=== PATIENT | female | born 1980 | race Caucasian/White ===

== ENCOUNTER 2023-10-08 06:12 | Day surgery (SDC) | payer SELFPAY ==
[2023-10-08] VITALS (10 sets, daily range): BP systolic 92–123; BP diastolic 58–76; PULSE 65–89; RESP 16; TEMP 36.6–36.9; O2SAT 94–100; BMI 31.6
[2023-10-08] MEDS: Lactated Ringers 1,000 ML 15 ML IV (06:30)
--- NOTE | 2023-10-08 07:27 | PCM.HP.BLA ---
History and Physical Date of Admission: 10/08/23 The patient is examined and there are no changes to the H&P dated 09/16/23. Pt with redundant atrophic skin of the abdomen following massive weight loss. Assessment & Plan Assessment/Plan (1) Localized adiposity of abdomen: (2) Solar elastosis: PLAN: Plan For abdominoplasty.
[2023-10-08] MEDS: Clindamycin 900 MG/50 ML BAG 75 MG IV (07:34)
[2023-10-08] MEDS: Gentamicin 80 MG/2 ML Vial (08:15)
[2023-10-08] MEDS: Bupivacaine 0.25% 30 ML Vial (12:38)
--- NOTE | 2023-10-08 12:57 | DCINST_ITS ---
Discharge Instructions Diet Discharge Diet: No restrictions Activity Additional Activity Instructions:: Keep back elevated (recliner position). Empty LACY's 2-3 times a day a record output in ml. Bring the LACY output sheet to your appointment. Maintain the Binder in the position as directed. Follow the instructions provided in the office. Follow Up Care Please Follow Up With: Sabrina Thurman MD When: next week as scheduled. Test Results: Test results from this visit will be discussed in further detail at your follow- up appointment, if applicable. Discharge Plan Admission Attending Provider: Sabrina Thurman Primary Care Provider: Anjelica Chapa Discharge Orders/Prescriptions Prescriptions: No Action clopidogrel [Plavix] 75 mg tablet 75 mg PO DAILY Hold Instructions: FOR SURGERY 10/08/23 losartan 50 mg tablet 50 mg PO DAILY pantoprazole [Protonix] 20 mg tablet,delayed release (DR/EC) 20 mg PO DAILY metoprolol succinate 50 mg tablet extended release 24 hr 25 mg PO BID atorvastatin 20 mg tablet 20 mg PO DAILY Lomaira 8 mg tablet 8 mg PO BID Hold Instructions: FOR SURGERY 10/08/23 Rx Instructions: must administer 30 minutes before meals/food aspirin 81 mg capsule 81 mg PO DAILY Hold Instructions: FOR SURGERY 10/08/23 clindamycin HCl 300 mg capsule 300 mg PO Q8H Qty: 20 0RF Referrals / Follow Up: Anjelica Chapa MD [Primary Care Provider] - Disposition Disposition (needs filled in before D/C Order can be placed): Home, Self Care
--- NOTE | 2023-10-08 13:03 | PCM.OPRPT ---
Problems Associated Problem List Diagnoses (1) Localized adiposity of abdomen: (2) Solar elastosis: Report of Operation Date of Procedure: 10/08/23 Pre-Operative Diagnosis: Localized adiposity, atrophic skin Post-Operative Diagnosis: Same Surgery/Procedure Performed:: Abdominoplasty including excision atrophic skin and rectus abdominis muscle plication Surgeon: Sabrina Thurman process validation engineer: ELLIOTT YOUNGBLOODpainter foreman Type of Anesthesia: General Drains: LACY x2 Estimated Blood Loss (mL): 50 cc Description of Procedure: The procedure of abdominoplasty been thoroughly reviewed with the patient including the expected pre-, intra-, postoperative course. The potential risk and complications of surgery have been reviewed which include but are not exclusive of bleeding, infection, pain, numbness, asymmetry, scar tissue, skin necrosis, the need for further surgery, DVT, and even . She is marked in the preop holding area prior to surgery. The patient was brought to the operating room and placed under general anesthesia in the supine position. Care is taken to pad all pressure points, apply a warming blanket, sequential compression stockings, and a Delacruz catheter. The abdomen is prepped and draped in the usual sterile fashion. We initially began with making the premarked incision. This is carried down through the subcutaneous tissue until the abdominal fascia is identified. Dissection then continued cephalad to the umbilicus. The umbilicus is circumscribed and an adequate adipose tissue cuff is left around the stalk. Dissection then continued cephalad to the xiphoid. The wound is irrigated with antibiotic solution and checked for hemostasis which is controlled with cautery. Following this, the edges of the rectus abdominis muscle are marked to delineate the diastases. Nurolon pop-off sutures are used along the length of the diastases to approximate the muscle edges in a [id number] fashion. Following this, a looped nylon suture is used to reinforce the closure. This is taken from the xiphoid to the umbilicus and then a second suture from the umbilicus to the pubic area. The patient is then placed in a semi-Fowlers position and the skin is demarcated to be removed. This is confirmed before the excess skin is incised and removed. Hemostasis is provided with cautery. 2 LACY drains were brought out through separate stab incisions and anchored in place with nylon suture. They were placed under the skin and fat flap on top of the muscle. The umbilicus is anchored to the fascia. The incision is then closed in 3 layers using a V-Loc suture to approximate deep subcutaneous tissue, dermis, and skin in a subcuticular fashion. A 2.5 cm ovoid incision is made along the midline and the umbilicus is brought out through this opening. It is sutured with a subcuticular Monocryl suture. Quarter percent plain Marcaine is injected beneath the flap through the drains and along the inferior incision line. Xeroform gauze is placed on all the incisions along with ABDs and this is anchored in place. The patient is noted to have some skin tears along her previous skin fold which likely or there prior to surgery. Placed patient is then placed in abdominal binder and Delacruz removed. She tolerated the procedure well was taken to the recovery area in an awake and stable condition. Needle and sponge counts are correct. Admit VTE Documentation VTE Mechan Device Prophylaxis: SCD's
== END 2023-10-08 18:06 | disposition home or self-care (01) ==
LOC: SDC 06:14 → AC 06:16
PROVIDERS: PCP Family Medicine; Referring Provider Plastic Surgery; Visit Provider Plastic Surgery
PROC: 0JB80ZZ Excision of Abdomen Subcutaneous Tissue and Fascia, Open Approach (ICD-10-PCS; CPT 15830; principal; 2023-10-08 07:15)
DX: L98.7 Excessive and redundant skin and subcutaneous tissue (principal); E65 Localized adiposity; L57.8 Other skin changes due to chronic exposure to nonionizing radiation
CPT/HCPCS: 15830; 15847; 00802; J7120; C1729; J2405; J3475; Q9968